=== PATIENT | female | born 1975 | race Caucasian/White ===

== ENCOUNTER 2021-03-19 12:24 | Emergency (ER) | payer OTHER ==
[~2021-03-19] VITALS: Ht 175.3 cm; Wt 181.4 kg
[~2021-03-19 12:24] MED LIST: LEVAQUIN 500 M500 MG PO; PERCOCET 5-3251 EACH PO; PHENERGAN 25 MG25 M1 PO
[2021-03-19 12:35] VITALS: BP 129/95
[2021-03-19 13:18] LABS: ABSOLUTE NEUTROPHILS 9.3 thou/uL (1.4-8.2); BASOPHILS 0.5 % (0.0-2.0); EOSINOPHILS 1.9 % (0.0-3.0); HEMATOCRIT 39.5 % (37.0-47.0); HEMOGLOBIN 13.2 gm/dL (12.0-15.0); LYMPHOCYTES 20.4 % (24.0-44.0); MCH 28.8 pg (26.0-34.0); MCHC 33.4 g/dL (28.0-37.0); MCV 86.4 fL (80.0-100.0); MONOCYTES 3.8 % (1.0-8.0); PLATELET COUNT 324 thou/uL (150-400); POLYS 73.4 % (36.0-66.0); RBC 4.57 mil/uL (4.20-5.00); RDW 13.8 % (10.5-14.5); WBC 12.7 thou/uL (4.0-11.0)
--- NOTE | 2021-03-19 13:24 | EKG ---
[address] [address] ELECTROCARDIOGRAM REPORT Name: HARSH RECINOS Room #: PRE [facility].#: [id number] Admission: Attend Phys: Discharge: Date of : 75 Report #: [id number] [facility] ED Test Date: 2021-03-19 Test Time: 12:43:52 Pat Name: HARSH RECINOS Department: Room: Gender: F Background Check Coordinator: josué : 1975 Requested By: Mono Ramírez Order Number: [id number] MD: Raffaele Snowden Measurements Intervals [place] Rate: 97 P: 45 [place]: 193 QRS: 53 QRSD: 99 T: 29 QT: 355 QTc: 451 Interpretive Statements Sinus rhythm Compared to ECG 09/16/2013 02:43:14 Sinus tachycardia no longer present Electronically Signed On 03-19-2021 13:24:01 CDT by Raffaele Snowden [email or web address] <ELECTRONICALLY SIGNED> By: Raffaele Snowden MD, [facility] 03/19/21 1324 1243 1243 Raffaele Snowden MD, FACC /EPI
[2021-03-19 13:25] LABS: ANION GAP 10 mmol/L (7-16); BUN 8 mg/dL (7-18); CALCIUM 8.7 mg/dL (8.5-10.1); CHLORIDE 107 mmol/L (98-107); CO2 27 mmol/L (21-32); CREATININE 0.8 mg/dL (0.6-1.0); GLUCOSE 94 mg/dL (74-106); POTASSIUM 3.9 mmol/L (3.5-5.1); SODIUM 144 mmol/L (136-145)
[2021-03-19 13:35] LABS: ALBUMIN 3.4 g/dL (3.4-5.0); SGOT 14 U/L (15-37); SGPT 22 U/L (30-65); TOTAL BILIRUBIN 0.9 mg/dL (0.2-1.0); TROPONIN-I <0.06 ng/mL (<0.06)
[2021-03-19 13:38] LABS: APTT 25.6 Seconds (24.5-32.8); D-DIMER 0.4 ug/mLFEU (0.19-0.50); INR 0.95; PROTIME 10.4 Seconds (10.5-12.1)
[2021-03-19] MEDS ORDERED: MEDROLDOSEPACK PO ×2 (14:14)
== END 2021-03-19 14:30 | disposition home or self-care (01) ==
LOC: ER 12:24
PROVIDERS: Emergency Medicine
DX: R06.00 Dyspnea, unspecified (principal); R60.0 Localized edema; Z90.49 Acquired absence of other specified parts of digestive tract; Z98.890 Other specified postprocedural states; Z90.710 Acquired absence of both cervix and uterus; Z79.899 Other long term (current) drug therapy